=== PATIENT | male | born 1960 | race Caucasian/White ===

== ENCOUNTER 2023-11-01 08:23 | Outpatient (RCR) | payer OTHER, SELFPAY ==
[2023-10-17 09:30] LABS: Glucose - Point of Care 136 mg/dl (70-99)
[2023-10-17 10:28] LABS: Glucose - Point of Care 134 mg/dl (70-99)
[2023-10-30 08:26] LABS: Glucose - Point of Care 199 mg/dl (70-99)
[2023-10-30 09:05] LABS: Glucose - Point of Care 117 mg/dl (70-99)
[2023-11-01 08:11] LABS: Glucose - Point of Care 164 mg/dl (70-99)
[2023-11-01 08:47] LABS: Glucose - Point of Care 118 mg/dl (70-99)
[2023-11-01 09:05] LABS: Glucose - Point of Care 139 mg/dl (70-99)
== END 2023-11-01 23:59 | disposition home or self-care (01) ==
LOC: CRHB 08:23
PROVIDERS: ATTENDING PHYSICIAN Internal Medicine Cardiovascular Disease
DX: I25.10 Atherosclerotic heart disease of native coronary artery without angina pectoris (principal); Z95.5 Presence of coronary angioplasty implant and graft
CPT/HCPCS: 82962; 93797; 93798

== ENCOUNTER 2023-11-08 08:08 | Outpatient (RCR) | payer OTHER, SELFPAY ==
[2023-11-08 08:22] LABS: Glucose - Point of Care 181 mg/dl (70-99)
[2023-11-08 09:04] LABS: Glucose - Point of Care 97 mg/dl (70-99)
== END 2023-11-08 23:59 | disposition home or self-care (01) ==
LOC: CRHB 08:08
PROVIDERS: ATTENDING PHYSICIAN Internal Medicine Cardiovascular Disease
DX: I25.10 Atherosclerotic heart disease of native coronary artery without angina pectoris (principal); Z95.5 Presence of coronary angioplasty implant and graft; Z95.1 Presence of aortocoronary bypass graft
CPT/HCPCS: 82962; 93797; 93798